=== PATIENT | female | born 1945 | race Caucasian/White ===

== ENCOUNTER → 2020-07-20 | Outpatient (CLI) | payer OTHER | LOC: KOH-I 12:22 | DX: M25.552 Pain in left hip (principal); M25.551 Pain in right hip; M25.562 Pain in left knee; M25.561 Pain in right knee | CPT/HCPCS: 73522; 73562 ==

== ENCOUNTER → 2020-10-10 | Outpatient (CLI) | payer OTHER | LOC: HEART 5 14:12 | DX: R05 Cough (principal) | CPT/HCPCS: 94010 ==

== ENCOUNTER 2020-12-11 13:22 | Emergency (ER) | payer OTHER ==
[2020-12-11 15:03] LABS: RED BLOOD COUNT 4.47 M/UL (4.00-5.10); WHITE BLOOD COUNT 11.2 K/UL (4.5-11.0)
[2020-12-11 15:22] LABS: BUN/CREATININE RATIO 13 (0-10)
== END 2020-12-11 17:21 | disposition home or self-care (01) ==
LOC: ER1 13:22
PROVIDERS: Physician Assistant
DX: E87.1 Hypo-osmolality and hyponatremia (principal); R60.0 Localized edema; I10 Essential (primary) hypertension; Z90.89 Acquired absence of other organs; Z88.2 Allergy status to sulfonamides
CPT/HCPCS: 80053; 85025; 93971; 99284

== ENCOUNTER → 2021-01-18 | Outpatient (CLI) | payer OTHER | LOC: KOH-I 01-17 15:00 | DX: L03.115 Cellulitis of right lower limb (principal); M79.89 Other specified soft tissue disorders; M71.21 Synovial cyst of popliteal space [Baker], right knee | CPT/HCPCS: 93926; 93971 ==

== ENCOUNTER → 2021-01-24 | Outpatient (CLI) | payer OTHER | LOC: HEART 5 12:44 | DX: R60.0 Localized edema (principal); I34.0 Nonrheumatic mitral (valve) insufficiency; I51.7 Cardiomegaly | CPT/HCPCS: 93306 ==

== ENCOUNTER → 2021-02-07 | Outpatient (CLI) | payer OTHER | LOC: KOH-I 12:18 | DX: M16.0 Bilateral primary osteoarthritis of hip (principal) | CPT/HCPCS: 73522 ==

== ENCOUNTER → 2021-02-13 | Outpatient (CLI) | payer OTHER | LOC: MAMO 08:13 | DX: Z12.31 Encounter for screening mammogram for malignant neoplasm of breast (principal) | CPT/HCPCS: 77063; 77067 ==

== ENCOUNTER → 2021-02-14 | Outpatient (CLI) | payer OTHER ==
[2021-02-14 07:48] LABS: BUN/CREATININE RATIO 21 (0-10)
== END ==
LOC: CT 07:04
PROVIDERS: Nurse Practitioner Family
DX: M79.89 Other specified soft tissue disorders (principal); R73.01 Impaired fasting glucose
CPT/HCPCS: 36415; 75635; 80053; Q9967

== ENCOUNTER → 2021-08-13 | Outpatient (CLI) | payer OTHER | LOC: KOH-I 08-12 13:00 | DX: R59.0 Localized enlarged lymph nodes (principal) | CPT/HCPCS: 76882 ==

== ENCOUNTER → 2021-12-10 | Outpatient (CLI) | payer OTHER | LOC: EXRD 11-19 08:00 → US 08:02 → EXRD 08:02 | DX: R79.89 Other specified abnormal findings of blood chemistry (principal) | CPT/HCPCS: 93975 ==